=== PATIENT | male | born 1970 | race Caucasian/White ===

== ENCOUNTER → 2019-01-11 13:21 | Outpatient (CLI) | payer OTHER, SELFPAY ==
--- NOTE | 2019-01-11 | DI.ECHO.S_ITS ---
[facility] +---------+ : : [address] : [address] : : : : [id number] : : : : Phone: [phone]---------+ Echocardiogram Report + + :Name: KRYSTINA CASPER Study Date: 01/11/2019 Height: 78 in : :[facility] Exam Location: [facility] Weight: 223 lb : : Gender: Male BSA: 2.4 m2 : :: 1970 Age: 48 yrs BP: 130/90 mmHg: :Reason For Study: Syncope : : Performed By: Clari Page : :Referring: SHANNON PALM : + + Interpretation Summary The left ventricle is normal in size. The ejection fraction is estimated to be 60-65%. The right ventricle is normal in size and function. No significant valvular pathology seen. Procedure: A two-dimensional transthoracic echocardiogram with color flow and Doppler was performed. The study quality was technically adequate. There is no prior echocardiogram noted for this patient. The subcostal views were difficult to obtain and are suboptimal in quality. The patient was in normal sinus rhythm during the exam. Left Ventricle: There is normal left ventricular wall thickness. The left ventricle is normal in size. There is no thrombus. The ejection fraction is estimated to be 60-65%. There are no focal wall motion abnormalities. MV E/A: 1.0 Med Peak E' Yifan: 7.2 cm/sec E/E' med: 7.0. Right Ventricle: The right ventricle is normal in size and function. Atria: The left atrial size is normal. Right atrial size is normal. The interatrial septum is intact with no evidence for an atrial septal defect. Mitral Valve: The mitral valve is normal in structure and function. There is trace mitral regurgitation. Aortic Valve: The aortic valve is trileaflet. The aortic valve opens well. There is no aortic valve stenosis. No aortic regurgitation is present. Tricuspid Valve: The tricuspid valve is normal in structure and function. There is a trace or physiologic amount of tricuspid regurgitation. Pulmonary artery pressures cannot be estimated because of the lack of a measurable TR jet velocity. Pulmonic Valve: The pulmonic valve is not well visualized. There is trace pulmonic regurgitation. Great Vessels: The aortic root is normal size. The dimensions of the ascending aorta are normal. The pulmonary artery is not well visualized, but is probably normal size. The inferior vena cava was not well visualized. Pericardium/ Pleura There is no pericardial effusion. There is no pleural effusion. MMode/2D Measurements & Calculations LVIDd: 4.7 cm LVOT diam: 2.3 cm LVIDs: 3.2 cm Ao root diam: 3.5 cm FS: 31.4 % asc Aorta Diam: 3.2 cm EPSS: 0.27 cm IVSd: 0.96 cm LVPWd: 1.0 cm LV romano. diameter/BSA (cm/m^2): 2.0 LV sys. diameter/BSA (cm/m^2): 1.4 LA A4 area: 23.9 cm2 RA long axis: 5.0 cm LA length (vol): 6.2 cm RA area: 15.8 cm2 RA vol: 42.9 ml RA : 18.1 ml/m2 Doppler Measurements & Calculations Ao V2 max: 123.1 cm/sec LVOT Max Yifan: 79.5 cm/sec Ao V2 mean: 93.0 cm/sec LV V1 max P.5 mmHg Ao max P.1 mmHg LV V1 VTI: 14.5 cm Ao mean P.7 mmHg CANDE(I,D): 2.8 cm2 Ao V2 VTI: 22.2 cm CANDE(V,D): 2.7 cm2 sev ratio: 0.65 CANDE indexed to BSA (cm^2/m^2): 1.2 MV E max yifan: 49.8 cm/sec PA V2 max: 82.3 cm/sec MV A max yifan: 48.0 cm/sec PA V2 mean: 61.5 cm/sec MV E/A: 1.0 PA mean P.6 mmHg Med Peak E' Yifan: 7.2 cm/sec PA Accel Time: 0.14 sec E/E' med: 7.0 Lat Peak E' Yifan: 9.6 cm/sec E/E' lat: 5.2 E/e' average: 6.1 MV dec time: 0.29 sec MV P1/2t: 86.0 msec MV P1/2t max yifan: 49.6 cm/sec SV(LVOT): 61.7 ml MVA(P1/2t): 2.6 cm2 Reading Physician:PM
== END ==
PROVIDERS: Visit Provider Physician Assistant
DX: R55 Syncope and collapse (principal)
CPT/HCPCS: 93306